=== PATIENT | male | born 1975 | race Asian ===

== ENCOUNTER 2017-10-12 18:03 | Emergency (ER) | payer OTHER ==
[~2017-10-12] VITALS: Ht 175.3 cm; Wt 85.3 kg
[2017-10-12 20:29] LABS: PLATELET COUNT 219 K/uL (142-355)
[2017-10-12 20:38] LABS: POTASSIUM 3.8 mmol/L (3.6-5.2); SODIUM 133 mmol/L (136-145)
[2017-10-12 21:18] VITALS: BP 141/95; TEMP 98.2
== END 2017-10-12 21:20 | disposition home or self-care (01) ==
LOC: ED 18:03
PROVIDERS: Specialist
DX: R07.89 Other chest pain (principal)
CPT/HCPCS: 36415; 80048; 84484; 85027; 93005; 99283

== ENCOUNTER 2019-01-20 16:55 | Emergency (ER) | payer BC ==
[~2019-01-20] VITALS: Ht 175.3 cm; Wt 90.7 kg
[2019-01-20 18:38] LABS: PLATELET COUNT 210 K/uL (142-355)
[2019-01-20 18:55] LABS: POTASSIUM 3.4 mmol/L (3.6-5.2)
[2019-01-20 19:32] VITALS: BP 168/89; TEMP 98.6
== END 2019-01-20 19:35 | disposition home or self-care (01) ==
LOC: ED 16:55
PROVIDERS: Family Medicine
DX: N45.1 Epididymitis (principal); N34.2 Other urethritis
CPT/HCPCS: 36415; 80053; 81000; 85027; 87490; 87590; 99283

== ENCOUNTER 2019-04-21 22:33 | Inpatient (IN) | payer BC ==
[~2019-04-21] VITALS: Ht 175.3 cm; Wt 94.8 kg
[2019-04-21 22:49] VITALS: BP 158/112; TEMP 98.1
[2019-04-21] MEDS ORDERED: COZAAR100 MG PO (22:50)
[2019-04-21 23:14] LABS: PLATELET COUNT 200 K/uL (142-355)
[2019-04-21 23:48] LABS: POTASSIUM 3.5 mmol/L (3.6-5.2)
[2019-04-22] VITALS (7 sets, daily range): BP systolic 138–154; BP diastolic 84–100; TEMP 97.6–98.3; Ht 175.3 cm; Wt 94.8 kg
[2019-04-22 02:18] LABS: POTASSIUM 4.2 mmol/L (3.6-5.2)
[2019-04-22 08:34] LABS: PLATELET COUNT 183 K/uL (142-355)
[2019-04-22 09:00] LABS: POTASSIUM 4.2 mmol/L (3.6-5.2)
[2019-04-23] VITALS: BP 135/89; TEMP 98.4
[2019-04-23 04:00] VITALS: BP 136/92; TEMP 98.4
[2019-04-23 04:30] LABS: PLATELET COUNT 167 K/uL (142-355)
[2019-04-23 05:01] LABS: POTASSIUM 4.1 mmol/L (3.6-5.2); SODIUM 143 mmol/L (136-145)
[2019-04-23 08:00] VITALS: BP 156/106; TEMP 98
[2019-04-23 12:00] VITALS: BP 160/105; TEMP 97.8
[2019-04-23 16:00] VITALS: TEMP 97.4
[2019-04-23 20:00] VITALS: BP 160/98; TEMP 98.2
[2019-04-24] VITALS: BP 142/93; TEMP 97.9
[2019-04-24 04:00] VITALS: BP 153/105; TEMP 97.9
[2019-04-24 05:18] LABS: PLATELET COUNT 151 K/uL (142-355)
[2019-04-24 05:49] LABS: POTASSIUM 3.6 mmol/L (3.6-5.2); SODIUM 145 mmol/L (136-145)
[2019-04-24 08:00] VITALS: BP 138/95; TEMP 96.9
[2019-04-24 12:00] VITALS: BP 138/80; TEMP 98.3
[2019-04-24 16:05] VITALS: BP 135/88; TEMP 98
[2019-04-24 20:00] VITALS: BP 138/87; TEMP 98.7
[2019-04-25] VITALS (14 sets, daily range): BP systolic 125–170; BP diastolic 63–104; TEMP 98.4–98.8
[2019-04-25 09:44] LABS: POTASSIUM 3.5 mmol/L (3.6-5.2); SODIUM 143 mmol/L (136-145)
[2019-04-25 19:01] LABS: PLATELET COUNT 201 K/uL (142-355)
[2019-04-26] VITALS (16 sets, daily range): BP systolic 140–155; BP diastolic 82–101; TEMP 98.7–99.6
[2019-04-26 06:20] LABS: PLATELET COUNT 190 K/uL (142-355)
[2019-04-26 06:39] LABS: POTASSIUM 3.1 mmol/L (3.6-5.2); SODIUM 140 mmol/L (136-145)
[2019-04-27] VITALS: BP 150/100; TEMP 98.6
[2019-04-27 04:00] VITALS: BP 132/94; TEMP 98.7
[2019-04-27 05:12] LABS: POTASSIUM 3.2 mmol/L (3.6-5.2)
[2019-04-27 08:00] VITALS: BP 140/110; TEMP 98.1
[2019-04-27 12:00] VITALS: BP 158/90; TEMP 98
[2019-04-27 16:00] VITALS: BP 142/99; TEMP 99.4
[2019-04-27 20:00] VITALS: BP 142/98; TEMP 99.1
[2019-04-28] VITALS: BP 138/90; TEMP 99
[2019-04-28 04:00] VITALS: BP 130/92; TEMP 99.4
[2019-04-28 05:04] LABS: POTASSIUM 3.8 mmol/L (3.6-5.2)
[2019-04-28 08:00] VITALS: BP 137/89; TEMP 98.2
[2019-04-28] MEDS ORDERED: LEVOFLOXACIN750 MG PO (11:00)
== END 2019-04-28 13:45 | disposition home or self-care (01) | DRG 558 ==
LOC: ED 22:33 → MED/SURG 04-22 02:32 → ICU 04-25 18:24 → MED/SURG 04-26 11:15
PROVIDERS: Internal Medicine; ADMIT Student in an Organized Health Care Education/Training Program
DX: M62.82 Rhabdomyolysis (principal); N10 Acute pyelonephritis; N17.8 Other acute kidney failure; I10 Essential (primary) hypertension; R00.0 Tachycardia, unspecified; E87.6 Hypokalemia
CPT/HCPCS: 36415; 80048; 80053; 81000; 82150; 82550; 82553; 83605; 83615; 83690; 83735; 83874; 85027; 87088; 94760; 96360; 96365; 96368; 96375; 99284; J0360; J0696; J0744; J1650; J2270; J2405; J2550; J3490; Q9963

== ENCOUNTER 2019-08-02 10:37 | Outpatient (CLI) | payer BC ==
[~2019-08-02 10:37] MED LIST: COZAAR100 MG PO; LEVOFLOXACIN750 MG PO
== END 2019-08-02 20:11 | disposition home or self-care (01) ==
LOC: MRI 10:37
DX: M25.512 Pain in left shoulder (principal)

== ENCOUNTER 2019-12-11 20:59 | Emergency (ER) | payer BC ==
[~2019-12-11] VITALS: Ht 175.3 cm; Wt 89.4 kg
[2019-12-11 22:20] VITALS: BP 158/94; TEMP 98.4
== END 2019-12-11 22:20 | disposition home or self-care (01) ==
LOC: ED 20:59
DX: J02.9 Acute pharyngitis, unspecified (principal); J06.9 Acute upper respiratory infection, unspecified; R50.9 Fever, unspecified
CPT/HCPCS: 87502; 87651; 99283

== ENCOUNTER 2020-05-24 14:39 | Emergency (ER) | payer BC ==
[~2020-05-24] VITALS: Ht 175.3 cm; Wt 89.4 kg
[2020-05-24 16:02] LABS: PLATELET COUNT 199 K/uL (142-355)
[2020-05-24 16:11] LABS: POTASSIUM 3.6 mmol/L (3.6-5.2)
[2020-05-24 16:54] VITALS: BP 147/87; TEMP 98.1
== END 2020-05-24 16:54 | disposition home or self-care (01) ==
LOC: ED 14:39
PROVIDERS: Family Medicine
DX: K29.70 Gastritis, unspecified, without bleeding (principal)
CPT/HCPCS: 80053; 81000; 82150; 83690; 85027; 99283

== ENCOUNTER 2022-07-28 09:01 | Outpatient (CLI) | payer OTHER | END 2022-07-28 18:47 | disposition home or self-care (01) | LOC: RESP 09:01 | PROVIDERS: ATTEND Nurse Practitioner | DX: I10 Essential (primary) hypertension (principal) ==

== ENCOUNTER 2022-12-17 08:07 | Outpatient (CLI) | payer OTHER | END 2022-12-17 19:33 | disposition home or self-care (01) | LOC: US 08:07 | PROVIDERS: ATTEND Nurse Practitioner Family | DX: R74.8 Abnormal levels of other serum enzymes (principal) ==